=== PATIENT | female | born 1980 | race Caucasian/White ===

== ENCOUNTER 2022-05-07 10:37 | Outpatient (CLI) | payer BC | END 2022-05-07 10:38 | disposition home or self-care (01) | LOC: TBSIIMAG 10:37 | PROVIDERS: ATTEND Neurological Surgery | DX: M54.2 Cervicalgia (principal); M50.30 Other cervical disc degeneration, unspecified cervical region | CPT/HCPCS: 72040 ==

== ENCOUNTER 2022-05-20 14:15 | Inpatient (IN) | payer BC ==
[2022-05-21 11:40] VITALS: BMI 27.6
[2022-05-25] MEDS ORDERED: Scopolamine 1.5 mg/72 hour Patch ONE (10:40)
[2022-05-25] MEDS ORDERED: CEFAZOLIN 2 GM VIAL ONE (11:22)
[2022-05-25] MEDS ORDERED: Sodium Chloride 0.9% 100 ML ONE (11:22)
[2022-05-25] MEDS ORDERED: PROPOFOL 200 MG/20 ML VIAL ONE (11:44)
[2022-05-25] MEDS ORDERED: Rocuronium Bromide 10 MG/ML (10ML VIAL) ONE (11:44)
[2022-05-25] MEDS ORDERED: Neostigmine Methylsulfate 3 MG/3 ML SYRINGE ONE (11:44)
[2022-05-25] MEDS ORDERED: Glycopyrrolate 0.2 MG/ML 5 ML SYRINGE ONE (11:44)
[2022-05-25] MEDS ORDERED: Ondansetron PF 4 MG/2 ML Vial ONE (11:44)
[2022-05-25] MEDS ORDERED: Lidocaine 1% MPF 2 ML VIAL ONE (11:44)
[2022-05-25] MEDS ORDERED: Dexamethasone 20 MG/5 ML VIAL ONE (11:44)
[2022-05-25] MEDS ORDERED: Acetaminophen/Codeine 30-300mg Tablet PO PRN (12:37)
[2022-05-25] MEDS ORDERED: Promethazine 25 MG TAB PO PRN (12:37)
[2022-05-25] MEDS ORDERED: Morphine 2 MG/ML VIAL SLOW IVP PRN (12:37)
[2022-05-25] MEDS ORDERED: Ondansetron PF 4 MG/2 ML Vial IVP PRN (12:37)
[2022-05-25] MEDS ORDERED: Cyclobenzaprine 10 MG TAB PO PRN (12:37)
[2022-05-25] MEDS ORDERED: Milk Of Magnesia 30 ML UDCUP PO PRN (12:37)
[2022-05-25] MEDS ORDERED: Acetaminophen 325 MG TAB PO PRN (12:37)
[2022-05-25] MEDS ORDERED: Mag-Al 1200 mg/1200 mg/30 ML UDCUP PO PRN (12:37)
[2022-05-25] MEDS ORDERED: diphenhydrAMINE 25 MG CAP PO PRN (12:37)
[2022-05-25] MEDS ORDERED: Midazolam HCl 2 mg/2 ml Vial ONE (12:44)
[2022-05-25] MEDS ORDERED: Thrombin 5000 UNITS/5 ML VIAL ONE (12:44)
[2022-05-25] MEDS ORDERED: fentaNYL Citrate/PF 100 MCG/2 ML SYRINGE ONE (12:44)
[2022-05-25] MEDS ORDERED: HYDROmorphone 0.5 MG/0.5 ML SYRINGE ONE ×2 (13:00→14:04)
[2022-05-25] MEDS: Sodium Chloride 0.9% 1,000 ML IV SCH (16:35)
[2022-05-25] MEDS: Gabapentin 400 MG CAP PO SCH ×3 (16:35→21:52)
[2022-05-25] MEDS: Acetaminophen/Codeine 30-300mg Tablet PO PRN ×2 (16:36→21:53)
[2022-05-25] MEDS ORDERED: clonazePAM 0.5 MG TAB PO SCH (21:00)
[2022-05-25] MEDS: CEFAZOLIN 2 GM in Sodium Chloride 0.9% 100 ML IVPB SCH (21:52)
[2022-05-26 00:40] VITALS: TEMP 97.8
[2022-05-26] MEDS: CEFAZOLIN 2 GM in Sodium Chloride 0.9% 100 ML IVPB SCH (04:14)
[2022-05-26] MEDS: Acetaminophen/Codeine 30-300mg Tablet PO PRN (04:15)
[2022-05-26] MEDS: Sodium Chloride 0.9% 1,000 ML IV SCH (04:59)
[2022-05-26 05:11] VITALS: BP 109/71
[2022-05-26] MEDS ORDERED: Artificial Tear Sol 15 ML BOT EA EYE PRN (06:05)
[2022-05-26] MEDS ORDERED: clonazePAM 0.5 MG TAB PO SCH (09:00)
== END 2022-05-26 07:15 | disposition home or self-care (01) | DRG 460 ==
LOC: SURG A 05-25 07:14 → SJJU 05-25 15:29
PROVIDERS: ADMIT Neurological Surgery; ATTEND Neurological Surgery
PROC: 0SG3071 Fusion of Lumbosacral Joint with Autologous Tissue Substitute, Posterior Approach, Posterior Column, Open Approach (ICD-10-PCS; principal; 2022-05-25)
PROC: 0SP30JZ Removal of Synthetic Substitute from Lumbosacral Joint, Open Approach (ICD-10-PCS; 2022-05-25)
DX: T84.226A Displacement of internal fixation device of vertebrae, initial encounter (principal); M54.16 Radiculopathy, lumbar region; F41.9 Anxiety disorder, unspecified; J45.909 Unspecified asthma, uncomplicated; G89.29 Other chronic pain; Y83.8 Other surgical procedures as the cause of abnormal reaction of the patient, or of later complication, without mention of misadventure at the time of the procedure; Z90.49 Acquired absence of other specified parts of digestive tract; Z98.890 Other specified postprocedural states
CPT/HCPCS: C1713; J0690; J1100; J1170; J2250; J2405; J2704; J3370; J3490

== ENCOUNTER 2022-05-20 14:19 | Outpatient (CLI) | payer BC ==
[2022-05-20 15:00] LABS: Hemoglobin 13.7 g/dL (12.0-15.5); Mean Corpuscular HGB CONC 32.9 g/dL (32.0-36.0); Mean Corpuscular Hemoglobin 30.4 pg (27.0-33.0); Mean Corpuscular Volume 92.7 fl (81.6-98.3); Mean Platelet Volume 9.6 fl (7.4-10.4); Platelet Count 272 10x3/uL (150-450); RBC Distribution Width 13.5 % (11.5-14.5); White Blood Cell (WBC) Count 5.6 10x3/uL (3.5-10.5)
[2022-05-20 15:26] LABS: Anion Gap 14 mmol/L (10-20); BUN (Urea Nitrogen) 8 mg/dL (7.0-18.7); Calc. Creatinine Clearance 0 mL/min (70-130); Calcium 9.8 mg/dL (7.8-10.44); Carbon Dioxide 26 mmol/L (22-29); Chloride 105 mmol/L (98-107); Estimated GFR 86; Glucose 85 mg/dL (70-105); Potassium 4.2 mmol/L (3.5-5.1); Sodium 141 mmol/L (136-145)
== END 2022-05-20 14:20 | disposition home or self-care (01) ==
LOC: LABBT 14:19
PROVIDERS: ATTEND Neurological Surgery
DX: Z01.818 Encounter for other preprocedural examination (principal); M54.16 Radiculopathy, lumbar region; Z20.822 Contact with and (suspected) exposure to COVID-19
CPT/HCPCS: 80048; 85027; 87811; 93005; 93010

== ENCOUNTER 2022-06-14 06:31 | Emergency (ER) | payer BC ==
[2022-06-14 07:36] LABS: #Eosinphils 0.2 thou/uL (0.0-0.7); #Lymphocytes 1.9 thou/uL (1.20-3.40); #Monocytes 0.4 thou/uL (0.11-0.59); #Neutrophils 3.1 thou/uL (1.40-6.50); %Basophils 0.7 % (0.0-1.0); %Lymphocytes 34.5 % (21.0-51.0); %Monocytes 6.5 % (0.0-10.0); %Neutrophils 54.4 % (42.0-75.0); Hemoglobin 13.7 g/dL (12.0-16.0); Mean Corpuscular HGB CONC 33.4 g/dL (32.0-36.0); Mean Corpuscular Hemoglobin 32.2 pg (27.0-31.0); Mean Corpuscular Volume 96.4 fL (78.0-98.0); Platelet Count 322 thou/uL (130-400); RBC Distribution Width 12.3 % (11.5-14.5); Red Blood Cell (RBC) Count 4.26 mill/uL (4.20-5.40); White Blood Cell (WBC) Count 5.6 thou/uL (4.8-10.8)
[2022-06-14] MEDS ORDERED: Ondansetron PF 4 MG/2 ML Vial ONE (07:50)
[2022-06-14] MEDS ORDERED: Morphine 4 MG/ML VIAL ONE ×2 (07:50→08:54)
[2022-06-14 07:54] LABS: ALT (SGPT) 110 U/L (8-55); AST (SGOT) 62 U/L (5-34); Albumin 4.2 g/dL (3.5-5.0); Alkaline Phosphatase 107 U/L (40-110); Anion Gap 12 mmol/L (10-20); BUN (Urea Nitrogen) 9 mg/dL (7.0-18.7); Bilirubin, Total 0.3 mg/dL (0.2-1.2); Calc. Creatinine Clearance 0 mL/min (70-130); Calcium 9.6 mg/dL (7.8-10.44); Carbon Dioxide 26 mmol/L (22-29); Chloride 106 mmol/L (98-107); Estimated GFR 99; Globulin 2.9 g/dL (2.4-3.5); Glucose 91 mg/dL (70-105); Potassium 4.1 mmol/L (3.5-5.1); Protein, Total 7.1 g/dL (6.0-8.3); Sodium 140 mmol/L (136-145)
[2022-06-14 08:04] LABS: Bilirubin Negative (Negative); Blood, Urine Negative (Negative); Clarity Clear (Clear); Glucose, Urine (Dipstick) Normal (Negative); Ketone, Urine Negative (Negative); Leukocyte Negative Leu/uL (Negative); Nitrite Negative (Negative); Protein, Urine (Dipstick) Negative (Neg-Trace); Specific Gravity, Urine 1.005 (1.002-1.036); Urobilinogen Normal mg/dL (Less than 2); pH, Urine 6.5 (5.0-9.0)
[2022-06-14] MEDS ORDERED: Ketorolac Tromethamine 30 MG/ML VIAL ONE (08:54)
[2022-06-14] MEDS ORDERED: Iopamidol-370 76% 500 ML 1 ML ONE (09:17)
[2022-06-14] MEDS ORDERED: Pantoprazole 40 MG VIAL ONE (10:55)
== END 2022-06-14 12:15 | disposition home or self-care (01) ==
LOC: ERS 06:31
DX: L76.34 Postprocedural seroma of skin and subcutaneous tissue following other procedure (principal); Z20.822 Contact with and (suspected) exposure to COVID-19
CPT/HCPCS: 36415; 71045; 72129; 72132; 80053; 81003; 83605; 84484; 85025; 93005; 96374; 96375; 96376; C9113; J1885; J2270; J2405; Q9967; U0003; U0005

== ENCOUNTER 2022-06-18 12:35 | Outpatient (CLI) | payer BC | END 2022-06-18 12:36 | disposition home or self-care (01) | LOC: TBSIIMAG 12:35 | PROVIDERS: ATTEND Neurological Surgery | DX: M54.16 Radiculopathy, lumbar region (principal); Z98.890 Other specified postprocedural states | CPT/HCPCS: 72100 ==

== ENCOUNTER 2022-12-10 08:35 | Outpatient (CLI) | payer BC | END 2022-12-10 08:36 | disposition home or self-care (01) | LOC: TBSIIMAG 08:35 | PROVIDERS: ATTEND Neurological Surgery | DX: M54.2 Cervicalgia (principal); M54.50 Low back pain, unspecified; M54.6 Pain in thoracic spine; M47.812 Spondylosis without myelopathy or radiculopathy, cervical region; Z98.890 Other specified postprocedural states | CPT/HCPCS: 72040; 72072; 72100 ==

== ENCOUNTER 2023-07-16 11:07 | Outpatient (CLI) | payer BC ==
[2023-07-16 12:48] LABS: Hematocrit 39.8 % (34.9-44.5); Hemoglobin 12.8 g/dL (12.0-15.5); Mean Corpuscular HGB CONC 32.2 g/dL (32.0-36.0); Mean Corpuscular Hemoglobin 27.9 pg (27.0-33.0); Mean Corpuscular Volume 86.9 fl (81.6-98.3); Platelet Count 363 10x3/uL (150-450); RBC Distribution Width 14.5 % (11.5-14.5); Red Blood Cell (RBC) Count 4.58 10x6/uL (3.90-5.03); White Blood Cell (WBC) Count 7.7 10x3/uL (3.5-10.5)
[2023-07-16 13:05] LABS: Anion Gap 14 mmol/L (10-20); BUN (Urea Nitrogen) 10 mg/dL (7.0-18.7); Calc. Creatinine Clearance 0 mL/min (70-130); Calcium 8.9 mg/dL (7.8-10.44); Carbon Dioxide 27 mmol/L (22-29); Chloride 104 mmol/L (98-107); Estimated GFR 97; Glucose 97 mg/dL (70-105); Potassium 4.1 mmol/L (3.5-5.1); Sodium 141 mmol/L (136-145)
== END 2023-07-16 11:08 | disposition home or self-care (01) ==
LOC: LABBT 11:07
PROVIDERS: ATTEND Surgery
DX: Z01.818 Encounter for other preprocedural examination (principal); M54.12 Radiculopathy, cervical region
CPT/HCPCS: 80048; 85027; 93005; 93010

== ENCOUNTER 2023-07-19 06:58 | Day surgery (SDC) | payer BC ==
[2023-07-16 11:44] VITALS: BMI 30.9
[2023-07-19] MEDS ORDERED: Scopolamine 1.5 mg/72 hour Patch ONE (08:50)
[2023-07-19] MEDS ORDERED: Acetaminophen 500 MG TAB ONE (08:50)
[2023-07-19] MEDS ORDERED: fentaNYL PF 100 MCG/2 ML SYRINGE ONE (09:42)
[2023-07-19] MEDS ORDERED: SUGAMMADEX SODIUM 200 MG/2 ML VIAL ONE (09:42)
[2023-07-19] MEDS ORDERED: HYDROmorphone 0.5 MG/0.5 ML SYRINGE ONE ×3 (09:42→12:15)
[2023-07-19] MEDS ORDERED: Famotidine/PF 20 mg/2ml Vial ONE (09:50)
[2023-07-19] MEDS ORDERED: Dexmedetomidine 200 MCG/2 ML VIAL ONE (09:50)
[2023-07-19] MEDS ORDERED: Sodium Chloride 0.9% 100 ML ONE (09:51)
[2023-07-19] MEDS ORDERED: CEFAZOLIN 2 GM VIAL ONE (09:51)
[2023-07-19] MEDS ORDERED: Ondansetron PF 4 MG/2 ML Vial ONE (09:57)
[2023-07-19] MEDS ORDERED: Albuterol HFA (OR) 200 PUFF INH ONE (09:57)
[2023-07-19] MEDS ORDERED: Dexamethasone 20 MG/5 ML VIAL ONE (09:57)
[2023-07-19] MEDS ORDERED: PROPOFOL 200 MG/20 ML VIAL ONE (09:57)
[2023-07-19] MEDS ORDERED: Lidocaine 1% PF 5 ML VIAL ONE (09:57)
[2023-07-19] MEDS ORDERED: Rocuronium Bromide 10 MG/ML (10ML VIAL) ONE (09:57)
[2023-07-19] MEDS ORDERED: fentaNYL 50 mcg/mL 1 mL Vial ONE (11:13)
[2023-07-19] MEDS ORDERED: Promethazine HCl 25 MG/ML VIAL IM PRN (11:18)
[2023-07-19] MEDS ORDERED: Ondansetron HCl/PF 4 MG/2 ML Vial IVP PRN (11:18)
[2023-07-19] MEDS ORDERED: HYDROmorphone 2 MG/ML VIAL SLOW IVP PRN (11:18)
[2023-07-19] MEDS ORDERED: Midazolam HCl 2 mg/2 ml Vial SLOW IVP PRN (11:19)
[2023-07-19] MEDS ORDERED: Midazolam HCl 2 mg/2 ml Vial ONE (11:30)
[2023-07-19] MEDS ORDERED: Cyclobenzaprine 10 MG TAB ONE (11:49)
[2023-07-19] MEDS ORDERED: HYDROcodone/Acetaminophen 5/325 mg Tablet ONE (13:14)
== END 2023-07-19 14:04 | disposition home or self-care (01) ==
LOC: SDC 06:58
PROVIDERS: ATTEND Neurological Surgery
PROC: 0RG10A0 Fusion of Cervical Vertebral Joint with Interbody Fusion Device, Anterior Approach, Anterior Column, Open Approach (ICD-10-PCS; principal; 2023-07-19)
DX: M50.10 Cervical disc disorder with radiculopathy, unspecified cervical region (principal)
CPT/HCPCS: C1713; J1100; J1170; J2250; J2405; J2704; J3010; J3490; S0028